=== PATIENT | female | born 1990 | race Two or more races ===

== ENCOUNTER 2016-11-04 06:54 | Emergency (ER) | payer MEDICAID ==
[~2016-11-04] VITALS: Ht 147.3 cm; Wt 72.6 kg
[~2016-11-04 06:54] MED LIST: IBUPROFEN600 MG ORAL; NKM; NORCO 5-325 TA1 EACH ORAL
[2016-11-04 07:20] VITALS: BP 99/69
[2016-11-04 07:36] LABS: KETONES,URINE NEGATIVE (NEGATIVE); LEUKOCYTE ESTERASE ,URINE NEGATIVE (NEGATIVE); NITRITE,URINE NEGATIVE (NEGATIVE); PH,URINE 7 (4.5-8.0); PROTEIN,URINE NEGATIVE (NEGATIVE); UROBILINOGEN,URINE 1 MG/DL (0.0-1.0)
[2016-11-04 07:41] LABS: APPEARANCE,URINE CLEAR
[2016-11-04] MEDS ORDERED: Morphine Sulfate 4mg/ml Inj IVP ONE (07:45)
[2016-11-04 08:03] LABS: BASOPHILS % (AUTO) 1.1 % (0.0-2.0); EOSINOPHILS % (AUTO) 1.3 % (0.0-3.0); LYMPHOCYTES % (AUTO) 32.3 % (20.0-45.0); MEAN CORPUSCULAR HGB CONC 33.3 G/DL (32.0-36.0); MEAN CORPUSCULAR VOLUME 87 FL (80-99); MONOCYTES % (AUTO) 6.1 % (1.0-10.0); NEUTROPHILS % (AUTO) 59.3 % (45.0-75.0); PLATELET COUNT 345 K/UL (150-450); RED BLOOD COUNT 4.35 M/UL (4.20-5.40); RED CELL DISTRIBUTION WIDTH 13.2 % (11.6-14.8); WHITE BLOOD COUNT 6.3 K/UL (4.8-10.8)
[2016-11-04 08:21] LABS: ALANINE AMINOTRANSFERASE 16 U/L (3-33); ALBUMIN/GLOBULIN RATIO 1.2 (1.0-2.7); ANION GAP 12 (5-15); ASPARTATE AMINO TRANSFERASE 18 U/L (5-40); CALCIUM 9.3 mg/dL (8.6-10.2); CARBON DIOXIDE 27 mEQ/L (20-30); CHLORIDE 101 mEQ/L (98-107); CREATININE 0.6 mg/dL (0.5-0.9); GLOMERULAR FILTRATION RATE > 60 mL/min (>60); HEMOLYSIS 4; LIPASE 40 U/L (< 60); SODIUM 140 mEQ/L (135-145); TOTAL PROTEIN 7.2 g/dL (6.6-8.7)
[2016-11-04] MEDS ORDERED: NORCO 5-325 TA1 EACH ORAL (09:05)
[2016-11-04] MEDS ORDERED: IBUPROFEN600 MG ORAL (09:05)
[2016-11-04 09:24] VITALS: BP 94/70
--- NOTE | 2016-11-04 09:56 | Emergency Room Report ---
History of Present Illness General Chief Complaint: Abdominal Pain Source: Patient Present Illness HPI 26-year-old female presents ED complaining of abdominal pain. States pain started this morning around 3 AM. Pain is noted to right upper quadrant, sharp , 8/10, radiating to the back. Notes multiple episodes of nausea and vomiting. Denies fevers or chills. Denies dysuria or hematuria. Patient states she has history of gallstones and presented with similar type pain in the past. No other aggravating or relieving factors. Denies any other associated symptoms Allergies: Coded Allergies: No Known Allergies (Unverified , 11/04/16) Patient History Past Medical History: other - gallstones Past Surgical History: none Pertinent Family History: none Social History: Denies: alcohol use, drug use, smoking Last Menstrual Period: 4 months ago Now: No Immunizations: UTD Reviewed Nursing Documentation: PMH: Agreed, PSxH: Agreed Nursing Documentation-PMH Past Medical History: No History, Except For Hx Gastrointestinal Problems: Yes - GALLSTONES Review of Systems All Other Systems: negative except mentioned in HPI Physical Exam Vital Signs Date Time Temp Pulse Resp B/P Pulse Ox O2 Delivery O2 Flow Rate FiO2 11/04/16 07:08 98.2 73 16 111/73 99 Room Air Sp02 EP Interpretation: reviewed, normal General Appearance: no apparent distress, alert, GCS 15, non-toxic Head: normocephalic, atraumatic Eyes: bilateral eye PERRL, bilateral eye normal inspection ENT: hearing grossly normal, normal pharynx, no angioedema, normal voice Neck: full range of motion, supple/symm/no masses Respiratory: chest non-tender, lungs clear, normal breath sounds, speaking full sentences Cardiovascular #1: regular rate, rhythm, no edema Cardiovascular #2: 2+ carotid (R), 2+ carotid (L), 2+ radial (R), 2+ radial (L) , 2+ dorsalis pedis (R), 2+ dorsalis pedis (L) Gastrointestinal: normal bowel sounds, soft, non-distended, no guarding, no rebound, tenderness - RUQ Rectal: deferred Genitourinary: normal inspection, no CVA tenderness Musculoskeletal: back normal, gait/station normal, normal range of motion, non- tender Neurologic: alert, oriented x3, responsive, motor strength/tone normal, sensory intact, speech normal Psychiatric: judgement/insight normal, memory normal, mood/affect normal, no suicidal/homicidal ideation Reflexes: 3+ bicep (R), 3+ bicep (L), 3+ tricep (R), 3+ tricep (L), 3+ knee (R) , 3+ knee (L) Skin: normal color, no rash, warm/dry, well hydrated Lymphatic: no adenopathy Medical Decision Making Diagnostic Impression: Primary Impression: Cholelithiasis Qualified Codes: K80.20 - Calculus of gallbladder without cholecystitis without obstruction Additional Impression: Abdominal pain Qualified Codes: R10.11 - Right upper quadrant pain ER Course Hospital Course 26-year-old F presents to ED with RUQ abdominal pain Differential diagnosis includes - pyelonephritis, kidney stone, gastritis, cholecystitis Clinical course Patient placed on stretcher. After initial history and physical I ordered labs , IV fluids, pain medications and US Labs - no leukocytosis, electrolytes ok, LFTs normal, UA unremarkable US shows gallstones, no GB thickening, negative murphys sign, CBD normal Upon reassessment, patient states pain has improved. I discussed with patient options for outpatient surgical referral given patient has had 3-4 episodes of pain. Recommend low-fat diet as fast food greasy food can trigger the symptoms I feel this is a highly complex case requiring extensive working including EKG/ Rhythm strip, Xray/CT/US, Blood/urine lab work, repeat exams while in ED, and administration of strong opiates/narcotics for pain control, admission to hospital or close patient follow up. Diagnosis - cholelithiasis, abdominal pain Stable and discharged to home with prescription for Motrin, Welsh. Followup with PMD. Return to ED if symptoms recur or worsen Labs Test 11/04/16 07:26 11/04/16 07:52 Urine Color Pale yellow Urine Appearance Clear Urine pH 7 (4.5-8.0) Urine Specific Ellinger 1.020 (1.005-1.035) Urine Protein Negative (NEGATIVE) Urine Glucose (UA) Negative (NEGATIVE) Urine Ketones Negative (NEGATIVE) Urine Occult Blood Negative (NEGATIVE) Urine Nitrite Negative (NEGATIVE) Urine Bilirubin Negative (NEGATIVE) Urine Urobilinogen 1 MG/DL (0.0-1.0) Urine Leukocyte Esterase Negative (NEGATIVE) Urine HCG, Qualitative Negative White Blood Count 6.3 K/UL (4.8-10.8) Red Blood Count 4.35 M/UL (4.20-5.40) Hemoglobin 12.6 G/DL (12.0-16.0) Hematocrit 37.9 % (37.0-47.0) Mean Corpuscular Volume 87 FL (80-99) Mean Corpuscular Hemoglobin 29.0 PG (27.0-31.0) Mean Corpuscular Hemoglobin Concent 33.3 G/DL (32.0-36.0) Red Cell Distribution Width 13.2 % (11.6-14.8) Platelet Count 345 K/UL (150-450) Mean Platelet Volume 7.0 FL (6.5-10.1) Neutrophils (%) (Auto) 59.3 % (45.0-75.0) Lymphocytes (%) (Auto) 32.3 % (20.0-45.0) Monocytes (%) (Auto) 6.1 % (1.0-10.0) Eosinophils (%) (Auto) 1.3 % (0.0-3.0) Basophils (%) (Auto) 1.1 % (0.0-2.0) Sodium Level 140 mEQ/L (135-145) Potassium Level 4.0 mEQ/L (3.4-4.9) Chloride Level 101 mEQ/L (98-107) Carbon Dioxide Level 27 mEQ/L (20-30) Anion Gap 12 (5-15) Blood Urea Nitrogen 14 mg/dL (7-23) Creatinine 0.6 mg/dL (0.5-0.9) Estimat Glomerular Filtration Rate > 60 mL/min (>60) Glucose Level 104 mg/dL (74-106) Calcium Level 9.3 mg/dL (8.6-10.2) Total Bilirubin 0.4 mg/dL (0.0-1.2) Aspartate Amino Transf (AST/SGOT) 18 U/L (5-40) Alanine Aminotransferase (ALT/SGPT) 16 U/L (3-33) Alkaline Phosphatase 108 U/L (35-104) Total Protein 7.2 g/dL (6.6-8.7) Albumin 4.0 g/dL (3.5-5.2) Globulin 3.2 g/dL Albumin/Globulin Ratio 1.2 (1.0-2.7) Lipase 40 U/L (< 60) CT/MRI/US Diagnostic Results CT/MRI/US Diagnostic Results : Imaging Test Ordered: Abd US Impression gallstones in gallbladder. no GB wall thickening. CBD normal. Last Vital Signs Date Time Temp Pulse Resp B/P Pulse Ox O2 Delivery O2 Flow Rate FiO2 11/04/16 09:24 97.6 63 18 94/70 99 Room Air Status: improved Disposition: HOME, SELF-CARE Condition: Stable Scripts Hydrocodone Bit/Acetaminophen 5-325* (NORCO 5-325*) 1 Each Tablet 1 TAB ORAL Q6H Y for For Pain, #10 TAB 0 Refills Prov: TATY CHO M.D. 11/04/16 Ibuprofen* (MOTRIN*) 600 Mg Tablet 600 MG ORAL Q8H Y for For Pain, #30 TAB 0 Refills Prov: TATY CHO M.D. 11/04/16 Referrals: [facility],REFERRING (PCP) Patient Instructions: Cholelithiasis, [id number] TATY CHO M.D. November 04, 2016 09:56
--- NOTE | 2016-11-04 11:10 | Diagnostic Imaging Report ---
Indication: Chest Pain Comparison: None A single view chest radiograph was obtained. Findings: Cardiomediastinal appearance is within normal limits for age. Pulmonary vascularity is appropriate. The diaphragmatic contour is smooth and costophrenic angles are sharp. No pleural effusions are identified. The bones are unremarkable. Impression: No acute findings
--- NOTE | 2016-11-04 13:04 | Diagnostic Imaging Report ---
Indication:Abdominal pain Technique: Grayscale and duplex Doppler imaging of the abdomen performed. Comparison: None Findings: There are multiple gallstones present. Sonographic Miller's is negative per technologist. CBD is 6 mm. The liver, demonstrated part of the pancreas, aorta and IVC, both kidneys, spleen appear unremarkable. There is no biliary ductal dilatation identified. Doppler evaluation of the main portal vein shows patency. There is no ascites. No hydronephrosis seen. Impression: Cholelithiasis
== END 2016-11-04 09:32 | disposition home or self-care (01) ==
LOC: EMR 07:40
DX: K80.20 Calculus of gallbladder without cholecystitis without obstruction (principal)
CPT/HCPCS: 36415; 71010; 76700; 80053; 81003; 81025; 83690; 85025; 96374; 96375; 99284; J2270; J2405

== ENCOUNTER 2017-02-16 03:21 | Emergency (ER) | payer MEDICAID ==
[~2017-02-16] VITALS: Ht 147.3 cm; Wt 72.6 kg
[2017-02-16] MEDS ORDERED: Norco 5mg/325mg tab ORAL ONE (04:00)
--- NOTE | 2017-02-16 04:27 | Emergency Room Report ---
History of Present Illness General Chief Complaint: Abdominal Pain Source: Patient Present Illness HPI Is a 26-year-old female with a history of gallstone. Last attack was in october. She had ultrasound confirming this. She presents with chief complaint of right upper quadrant pain. Onset was acute. Occurred about less than an hour prior to arrival. Goes to her back. Pain was 10 out of 10. Has nausea but no vomiting. Now better. Now just aching. No fever or chills. No diarrhea. Similar symptom in the past. Allergies: Coded Allergies: No Known Allergies (Unverified , 11/04/16) Patient History Past Medical History: see triage record, old chart reviewed Past Surgical History: none Pertinent Family History: none Social History: Denies: smoking Last Menstrual Period: JUNE Now: No Immunizations: other Reviewed Nursing Documentation: PMH: Agreed, PSxH: Agreed Review of Systems Eye: Denies: blurred vision, eye pain ENT: Denies: ear pain, nose congestion, throat swelling Respiratory: Denies: cough, shortness of breath Cardiovascular: Denies: chest pain, palpitations Gastrointestinal: Reports: abdominal pain, nausea, Denies: diarrhea, vomiting Musculoskeletal: Denies: back pain, joint pain Skin: Denies: rash Neurological: Denies: headache, numbness Endocrine: Denies: increased thirst, increased urine Hematologic/Lymphatic: Denies: easy bruising All Other Systems: negative except mentioned in HPI Physical Exam Vital Signs Date Time Temp Pulse Resp B/P Pulse Ox O2 Delivery O2 Flow Rate FiO2 02/16/17 03:39 98.1 61 18 104/70 98 Room Air vitals normal Sp02 EP Interpretation: reviewed, normal General Appearance: well appearing, no apparent distress, alert Head: normocephalic, atraumatic Eyes: bilateral eye EOMI, bilateral eye PERRL ENT: hearing grossly normal, normal pharynx Neck: full range of motion, supple, no meningismus Respiratory: chest non-tender, lungs clear, normal breath sounds Cardiovascular #1: regular rate, rhythm, no murmur Gastrointestinal: normal bowel sounds, no mass, no organomegaly, no bruit, non- distended, tenderness - Mild, right upper quadrant. Negative Miller sign. Musculoskeletal: back normal, gait/station normal, normal range of motion Psychiatric: mood/affect normal Skin: warm/dry Medical Decision Making Diagnostic Impression: Primary Impression: Abdominal pain Qualified Codes: R10.11 - Right upper quadrant pain Additional Impression: Cholelithiasis Qualified Codes: K80.20 - Calculus of gallbladder without cholecystitis without obstruction ER Course Patient was biliary colic. By the time she got here, pain is very much resolved. I see no need for blood work. No evidence of cholecystitis or biliary extraction. No evidence of pancreatitis. We'll discharge home. Last Vital Signs Date Time Temp Pulse Resp B/P Pulse Ox O2 Delivery O2 Flow Rate FiO2 02/16/17 03:39 98.1 61 18 104/70 98 Room Air Status: improved Disposition: HOME, SELF-CARE Condition: Stable Scripts Hydrocodone/Acetaminophen 5-325* (HYDROCODONE/ACETAMINOPHEN 5-325*) 1 Each Tablet 1 TAB ORAL Q6H Y for For Pain, #30 TAB 0 Refills Prov: HANNAH GONZALEZ M.D. 02/16/17 Additional Instructions: Followup with your Dr. in 7 days. You may benefit from referral to see a surgeon. Return if symptom worsen. HANNAH GONZALEZ M.D. Feb 16, 2017 04:27
[2017-02-16] MEDS ORDERED: HYDROCODON-ACE1 EA15 ORAL (04:34)
[2017-02-16 04:40] VITALS: BP 104/70
[2017-02-16 04:41] VITALS: BP 104/70
== END 2017-02-16 04:41 | disposition home or self-care (01) ==
LOC: EMR 03:40
DX: K80.20 Calculus of gallbladder without cholecystitis without obstruction (principal)
CPT/HCPCS: 99283

== ENCOUNTER 2017-04-10 23:32 | Emergency (ER) | payer MEDICAID ==
[~2017-04-10] VITALS: Ht 147.3 cm; Wt 72.6 kg
[~2017-04-10 23:32] MED LIST changes: +HYDROCODON-ACE1 EA15 ORAL
[2017-04-10 23:40] VITALS: BP 112/65
[2017-04-11] MEDS ORDERED: Ketorolac 30mg Inj IV ONE
[2017-04-11 00:04] LABS: APPEARANCE,URINE SLIGHTLY CLOUDY; KETONES,URINE NEGATIVE (NEGATIVE); LEUKOCYTE ESTERASE ,URINE 1+ (NEGATIVE); NITRITE,URINE NEGATIVE (NEGATIVE); PH,URINE 5 (4.5-8.0); PROTEIN,URINE 1+ (NEGATIVE); UROBILINOGEN,URINE 1 MG/DL (0.0-1.0)
[2017-04-11 00:22] LABS: BASOPHILS % (AUTO) 1.1 % (0.0-2.0); EOSINOPHILS % (AUTO) 2.2 % (0.0-3.0); LYMPHOCYTES % (AUTO) 35.1 % (20.0-45.0); MEAN CORPUSCULAR HEMOGLOBIN 30.3 PG (27.0-31.0); MEAN CORPUSCULAR HGB CONC 33.5 G/DL (32.0-36.0); MEAN CORPUSCULAR VOLUME 90 FL (80-99); MEAN PLATELET VOLUME 7.3 FL (6.5-10.1); MONOCYTES % (AUTO) 8.6 % (1.0-10.0); PLATELET COUNT 344 K/UL (150-450); RED BLOOD COUNT 4.35 M/UL (4.20-5.40); RED CELL DISTRIBUTION WIDTH 12.5 % (11.6-14.8); WHITE BLOOD COUNT 6.9 K/UL (4.8-10.8)
[2017-04-11 00:28] LABS: BACTERIA,URINE FEW /HPF; RBC,URINE 0-2 /HPF (0 - 2); SQUAMOUS EPITHELIAL CELL,UR MODERATE /LPF (NONE/OCC); WBC,URINE 0-2 /HPF (0 - 2)
[2017-04-11 00:41] LABS: ALANINE AMINOTRANSFERASE 35 U/L (12-78); ANION GAP 8 (5-15); ASPARTATE AMINO TRANSFERASE 35 U/L (15-37); CARBON DIOXIDE 28 MMOL/L (21-32); CHLORIDE 104 MMOL/L (98-107); CREATININE 0.7 MG/DL (0.55-1.30); GLOMERULAR FILTRATION RATE > 60 mL/min (>60); LIPASE 186 U/L (73-393); POTASSIUM 3.1 MMOL/L (3.5-5.1); SODIUM 140 MMOL/L (136-145); TOTAL PROTEIN 7.7 G/DL (6.4-8.2)
[2017-04-11] MEDS ORDERED: HYDROCODON-ACE1 EA15 ORAL (01:04)
--- NOTE | 2017-04-11 01:04 | Emergency Room Report ---
History of Present Illness General Chief Complaint: General Complaint Source: Patient, Medical Record Present Illness HPI Is a 27-year-old female with history of gallstone. She presents with chief complaint of epigastric pain. Also with episode vomiting. She felt anxious afterward and was hyperventilating. No or chills. Better now. Denies any other complaint. Radiate to the back. Allergies: Coded Allergies: No Known Allergies (Unverified , 11/04/16) Patient History Past Medical History: see triage record, old chart reviewed Past Surgical History: none Pertinent Family History: none Social History: Denies: smoking Last Menstrual Period: 07/14 Now: No : 1 Para: 1 Immunizations: other Reviewed Nursing Documentation: PMH: Agreed, PSxH: Agreed Nursing Documentation-PMH Hx Gastrointestinal Problems: Yes - GALLSTONE Review of Systems Eye: Denies: eye pain, blurred vision ENT: Denies: ear pain, nose congestion, throat swelling Respiratory: Denies: cough, shortness of breath Cardiovascular: Denies: chest pain, palpitations Gastrointestinal: Reports: abdominal pain, nausea, vomiting, Denies: diarrhea Musculoskeletal: Denies: back pain, joint pain Skin: Denies: rash Neurological: Denies: headache, numbness Endocrine: Denies: increased thirst, increased urine Hematologic/Lymphatic: Denies: easy bruising All Other Systems: negative except mentioned in HPI Physical Exam Vital Signs Date Time Temp Pulse Resp B/P (MAP) Pulse Ox O2 Delivery O2 Flow Rate FiO2 04/10/17 23:40 98.1 79 18 112/65 99 Room Air vitals normal Sp02 EP Interpretation: reviewed, normal General Appearance: well appearing, no apparent distress, alert Head: normocephalic, atraumatic Eyes: bilateral eye PERRL, bilateral eye EOMI ENT: hearing grossly normal, normal pharynx Neck: full range of motion, supple, no meningismus Respiratory: chest non-tender, lungs clear, normal breath sounds Cardiovascular #1: regular rate, rhythm, no murmur Gastrointestinal: normal bowel sounds, non tender, no mass, no organomegaly, no bruit, non-distended Musculoskeletal: back normal, gait/station normal, normal range of motion Psychiatric: mood/affect normal Skin: warm/dry Medical Decision Making Diagnostic Impression: Primary Impression: Abdominal pain Qualified Codes: R10.13 - Epigastric pain Additional Impression: Cholelithiasis Qualified Codes: K80.20 - Calculus of gallbladder without cholecystitis without obstruction ER Course Patient with biliary colic and abdominal pain. No evidence of cholecystitis or obstruction. No evidence of acute abdomen. We'll discharge home Lab Results Impression labs normal Last Vital Signs Date Time Temp Pulse Resp B/P (MAP) Pulse Ox O2 Delivery O2 Flow Rate FiO2 04/11/17 00:46 98.1 04/10/17 23:40 77 18 112/65 99 Room Air Status: improved Disposition: HOME, SELF-CARE Condition: Stable Scripts Hydrocodone/Acetaminophen 5-325* (HYDROCODONE/ACETAMINOPHEN 5-325*) 1 Each Tablet 1 TAB ORAL Q6H Y for For Pain, #20 TAB 0 Refills Prov: HANNAH GONZALEZ M.D. 04/11/17 Referrals: NON PHYSICIAN (PCP) Additional Instructions: Followup with your doctor 7 days. You may benefit from referral to see a surgeon. Return if worse. HANNAH GONZALEZ M.D. Apr 11, 2017 01:04
[2017-04-11 01:18] VITALS: BP 112/65
== END 2017-04-11 01:18 | disposition home or self-care (01) ==
LOC: EMR 23:55
DX: K80.20 Calculus of gallbladder without cholecystitis without obstruction (principal)
CPT/HCPCS: 36415; 80053; 81003; 81025; 83690; 85025; 96361; 96374; 99284; J1885

== ENCOUNTER 2017-12-26 18:24 | Emergency (ER) | payer SELFPAY ==
[~2017-12-26] VITALS: Ht 147.3 cm; Wt 70.3 kg
[2017-12-26 18:47] VITALS: BP 106/71
--- NOTE | 2017-12-26 19:09 | Emergency Room Report ---
History of Present Illness General Chief Complaint: Upper Extremity Injury Source: Patient Present Illness HPI patient is a 27-year-old female with no significant past medical history here complaining of one day of left third digit pain and [place] Patient rates the pain 8 out of 10, claiming pain radiates to her upper arm. Patient complains of tingling, denies numbness. she has not taken any pain medication. She explains the mechanism of injury as trying to grab the bowling ball from the car as another ball came and crushed her finger to the other ball.denies any other trauma. Denies SOB, chest pain, palpitation. LMP was 2 months ago, she reports irregular menses. She is sexually active and reports she might be . Allergies: Coded Allergies: No Known Allergies (Unverified , 11/04/16) Patient History Past Medical History: see triage record Past Surgical History: none Pertinent Family History: none Last Menstrual Period: 10/26/17 Immunizations: UTD Reviewed Nursing Documentation: PMH: Agreed; PSxH: Agreed Nursing Documentation-PMH Past Medical History: No History, Except For Hx Gastrointestinal Problems: Yes - GALLSTONE Review of Systems All Other Systems: negative except mentioned in HPI Physical Exam Vital Signs Date Time Temp Pulse Resp B/P (MAP) Pulse Ox O2 Delivery O2 Flow Rate FiO2 12/26/17 18:26 98.4 76 18 106/71 98 Room Air 98.4 Sp02 EP Interpretation: reviewed, normal General Appearance: normal inspection, well appearing, no apparent distress, alert, GCS 15 Head: normocephalic Eyes: bilateral eye normal inspection, bilateral eye PERRL ENT: normal ENT inspection, hearing grossly normal, normal pharynx Neck: normal inspection, full range of motion, supple Respiratory: normal inspection, chest non-tender, lungs clear, normal breath sounds, no rhonchi, no respiratory distress, no retraction, no accessory muscle use Cardiovascular #1: normal inspection, normal peripheral pulses, regular rate, rhythm, no edema, no gallop, no murmur Cardiovascular #2: 2+ radial (R), 2+ radial (L) Gastrointestinal: normal inspection, normal bowel sounds, soft Rectal: deferred Genitourinary: deferred Musculoskeletal: back normal, decreased range of motion - decreased extension of 3rd L metacarpal, swelling - 3rd L metacarpal, distal phalanx, tender - L 3rd metacarpal TTP at DIP Neurologic: normal inspection, alert, oriented x3 Psychiatric: normal inspection, judgement/insight normal Skin: normal inspection, normal color, no rash, other - eccymosis left 3rd digit at dip Lymphatic: normal inspection, no adenopathy Procedures Splinting Splinting : Consent: Verbal Splint: sugar-tong Pre-Proc Neuro Vasc Exam: normal Post-Proc Neuro Vasc Exam: normal Patient Tolerated: Well Complications: None Medical Decision Making PA Attestation all patient's orders, diagnosis, treatment plans were reviewed and discussed with my supervising physician Dr. Madera Diagnostic Impression: Primary Impression: Fracture, finger, distal phalanx Additional Impression: Finger pain ER Course patient is a 27-year-old female with no significant past medical history here complaining of one day of left third digit pain and left hand post crushing injury [place] the bowling [place]. Patient rates the pain 8 out of 10, claiming pain radiates to her upper arm. Patient complains of tingling, denies numbness. she has not taken any pain medication. She explains the mechanism of injury as trying to grab the bowling ball from the car as another ball came and crushed her finger to the other ball.denies any other trauma. Denies SOB, chest pain, palpitation. LMP was 2 months ago, she reports irregular menses. She is sexually active and reports she might be . Ddx considered but are not limited to fx of 3rd metatarsal, contusion of 3rd metatarsal Vital signs: are WNL, pt. is afebrile H&PE are most consistent with [ ] ORDERS: urine preganancy test, Xray of L fingers, ibuprofen 400mg po once at ED ED INTERVENTIONS: ibuprofen 400mg once DISCHARGE: At this time pt. is stable for d/c to home. Will provide printed patient care instructions, and any necessary prescriptions. Care plan and follow up instructions have been discussed with the patient prior to discharge. negative urine Lab Results Impression not Other X-Ray Diagnostic Results Other X-Ray Diagnostic Results : X-Ray ordered: L finger Xray # of Views/Limited Vs Complete: 2 View Indication: Other - TTP EP Interpretation: Yes PA Xray: Interpretation reviewed, by supervising MD, and agrees with findings. Interpretation: no dislocation, other - fx of L thrid distal phalanx Electronically Signed by: tung Ch PA-C Last Vital Signs Date Time Temp Pulse Resp B/P (MAP) Pulse Ox O2 Delivery O2 Flow Rate FiO2 12/26/17 18:47 98.4 84 18 106/71 98 Room Air 98.4 Disposition: HOME, SELF-CARE Condition: Stable Scripts Hydrocodone Bit/Acetaminophen 5-325* (NORCO 5-325*) 1 Each Tablet 1 TAB ORAL Q6HR PRN for For Pain, #10 TAB 0 Refills Prov: Tung Bryan 12/26/17 Referrals: OTHER,REFERRING (PCP) Patient Instructions: Finger Fracture Additional Instructions: keep the splint on until follow up with ortho. take pain meds as directed. if throbbing pain, numbness, vascular compromize, return to ED Tung Bryan Dec 26, 2017 19:09
[2017-12-26] MEDS ORDERED: NORCO 5-325 TA1 EACH ORAL (19:52)
[2017-12-26 19:55] VITALS: BP 106/71
--- NOTE | 2017-12-27 11:49 | Diagnostic Imaging Report ---
Indication: pain in finger. trauma Findings: 3 views of the left third finger were obtained. There is an acute fracture of the tuft of what appears to be the fourth digit. Soft tissues are unremarkable. There is no malalignment or radiopaque foreign body. IMPRESSION: Acute tuft fracture
== END 2017-12-26 19:55 | disposition home or self-care (01) ==
LOC: EMR 18:42
DX: S62.633A Displaced fracture of distal phalanx of left middle finger, initial encounter for closed fracture (principal); W23.0XXA Caught, crushed, jammed, or pinched between moving objects, initial encounter; Y93.54 Activity, bowling; Y92.39 Other specified sports and athletic area as the place of occurrence of the external cause
CPT/HCPCS: 29130; 81025; 99283

== ENCOUNTER 2019-04-15 03:26 | Emergency (ER) | payer SELFPAY ==
[~2019-04-15] VITALS: Ht 147.3 cm; Wt 78.9 kg
--- NOTE | 2019-04-15 03:50 | NUR ---
ED Nurse Note: Recieved pt from home, here with c/o left arm pain with numbness x 4 days, pt thinks is stressed due ot planning wedding, pt is anxious and talking very fast, pt thinks she is having stroke, pt urine sample colledted, gowned and placed on cardiac monitoring, will resume care as ordered and continue to closely monitor.
[2019-04-15] MEDS ORDERED: GABAPENTIN100 MG ORAL (04:05)
[2019-04-15] MEDS ORDERED: PREDNISONE20 MG ORAL (04:05)
--- NOTE | 2019-04-15 04:06 | Emergency Room Report ---
History of Present Illness General Chief Complaint: Pain Source: Patient Present Illness HPI This is a 29-year-old female with no past medical history. She presents with chief complaint of left arm pain and numbness. Onset for last 3-4 days. No trauma. Pain started at the trapezius and the whole arm felt heavy and sleepy. No fever chills but no focal deficit. Denies any neck pain. No cough or congestion. Nothing made it better. Nothing made it worse. Tylenol is not helping. Allergies: Coded Allergies: No Known Allergies (Unverified , 11/04/16) Patient History Past Medical History: see triage record, old chart reviewed Past Surgical History: none Pertinent Family History: none Social History: Denies: smoking Last Menstrual Period: 12/10/18 Now: No Immunizations: other Reviewed Nursing Documentation: PMH: Agreed; PSxH: Agreed Nursing Documentation-PMH Past Medical History: No Stated History Hx Gastrointestinal Problems: Yes - GALLSTONE Review of Systems Eye: Denies: eye pain, blurred vision ENT: Denies: ear pain, nose congestion, throat swelling Respiratory: Denies: cough, shortness of breath Cardiovascular: Denies: chest pain, palpitations Gastrointestinal: Denies: abdominal pain, diarrhea, nausea, vomiting Musculoskeletal: Denies: back pain, joint pain Skin: Denies: rash Neurological: Denies: headache, numbness Endocrine: Denies: increased thirst, increased urine Hematologic/Lymphatic: Denies: easy bruising All Other Systems: negative except mentioned in HPI Physical Exam Vital Signs Date Time Temp Pulse Resp B/P (MAP) Pulse Ox O2 Delivery O2 Flow Rate FiO2 04/15/19 03:40 97.9 69 18 110/78 (89) 96 Room Air Vitals normal Sp02 EP Interpretation: reviewed, normal General Appearance: well appearing, no apparent distress, alert Head: normocephalic, atraumatic Eyes: bilateral eye PERRL, bilateral eye EOMI ENT: hearing grossly normal, normal pharynx Neck: full range of motion, supple, no meningismus Respiratory: chest non-tender, lungs clear, normal breath sounds Cardiovascular #1: regular rate, rhythm, no murmur Gastrointestinal: normal bowel sounds, non tender, no mass, no organomegaly, no bruit, non-distended Musculoskeletal: back normal, gait/station normal, normal range of motion Psychiatric: mood/affect normal Medical Decision Making Diagnostic Impression: Primary Impression: Neuropathy ER Course Left upper extremity neuropathy. Most likely secondary to cervical radiculopathy. No evidence of cauda equina syndrome, spinal epidural abscess or neoplastic process. No evidence of any stroke. Will discharge home with reassurance. If not better will need outpatient MRI. Explained to patient that x-rays and CT scan at are not helpful in this condition. Last Vital Signs Date Time Temp Pulse Resp B/P (MAP) Pulse Ox O2 Delivery O2 Flow Rate FiO2 04/15/19 03:40 97.9 69 18 110/78 (89) 96 Room Air Status: unchanged Disposition: HOME, SELF-CARE Condition: Stable Scripts Gabapentin* (GABAPENTIN*) 100 Mg Capsule 200 MG ORAL THREE TIMES A DAY, #30 CAP Prov: Conor Kong MD 04/15/19 Prednisone* (PREDNISONE*) 20 Mg Tablet 40 MG ORAL DAILY, #8 TAB Prov: Conor Kong MD 04/15/19 Referrals: NON PHYSICIAN (PCP) Additional Instructions: Follow-up with in 7 days. If not better, you may need an MRI. Return if symptoms worsen. Conor Kong MD Apr 15, 2019 04:06
[2019-04-15 04:15] VITALS: BP 110/78
--- NOTE | 2019-04-15 04:15 | NUR ---
ER DISCHARGE NOTE: Patient is cleared to be discharged per ERMD, pt is aox4, on room air, with stable vital signs. pt was given dc and prescription instructions, pt was able to verbalize understanding, pt id band removed. pt is able to ambulate with steady gait. pt took all belongings.
== END 2019-04-15 04:15 | disposition home or self-care (01) ==
LOC: EMR 03:40
DX: G62.9 Polyneuropathy, unspecified (principal)
CPT/HCPCS: 99282; J7512